=== PATIENT | female | born 1970 | race Caucasian/White ===

== ENCOUNTER 2017-01-04 04:25 | Emergency (ER) | payer OTHER ==
[~2017-01-04] VITALS: Ht 165.1 cm; Wt 86.2 kg
[2017-01-04 04:30] VITALS: BP 125/85
--- NOTE | 2017-01-04 04:33 | NUR ---
[facility] ALS TO ER BED 7
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
--- NOTE | 2017-01-04 04:40 | NUR ---
Patient being evaluated by physician at bedside.
[2017-01-04] MEDS ORDERED: IBUPROFEN 800 MG TAB PO ONE (05:25)
[2017-01-04] MEDS ORDERED: IBUPROFEN 800 MG TAB ONE (05:30)
[2017-01-04] MEDS ORDERED: oxyCODONE/APAP 5/325 MG 1 TAB TAB PO ONE (06:20)
[2017-01-04 07:15] VITALS: BP 115/69
--- NOTE | 2017-01-04 07:15 | NUR ---
Patient discharged with v/s stable. Written and verbal after care instructions given and explained. Patient verbalized understanding. Ambulatory [facility] with steady gait. All questions addressed prior to discharge. Advised to follow up with PMD.
== END 2017-01-04 07:15 | disposition home or self-care (01) ==
LOC: MED 04:25
DX: S39.012A Strain of muscle, fascia and tendon of lower back, initial encounter (principal); S90.122A Contusion of left lesser toe(s) without damage to nail, initial encounter; S90.02XA Contusion of left ankle, initial encounter; W10.9XXA Fall (on) (from) unspecified stairs and steps, initial encounter; Y93.89 Activity, other specified; Y92.89 Other specified places as the place of occurrence of the external cause; Y99.8 Other external cause status
CPT/HCPCS: 72110; 72170; 73610; 73660; 81025; 99284

== ENCOUNTER 2022-02-25 14:19 | Emergency (ER) | payer OTHER ==
[~2022-02-25] VITALS: Ht 162.6 cm; Wt 70.8 kg
[~2022-02-25 14:19] MED LIST: ACET-9882 PO; BUPR-160 PO; CEPH250C16 PO; DULO30EC PO; DULO60EC1 PO; ERGO-30 PO; HYDR25CA1 PO; LURA80TA1 PO; METF-346 PO; METR500T1 PO; ONDA4TAB PO; POTA10TA70 PO; QUET300T1 PO; SYN.05 PO
[2022-02-25 14:26] VITALS: BP 105/48
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
--- NOTE | 2022-02-25 14:40 | NUR ---
TEZ LARA AT BEDSIDE FOR EVAL
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
== END 2022-02-25 15:14 ==
LOC: MED 14:19
DX: E11.9 Type 2 diabetes mellitus without complications (principal); F41.9 Anxiety disorder, unspecified; F32.A Depression, unspecified; Z02.89 Encounter for other administrative examinations; Z79.4 Long term (current) use of insulin; Z79.899 Other long term (current) drug therapy; V49.88XA Car occupant (driver) (passenger) injured in other specified transport accidents, initial encounter; Y93.89 Activity, other specified; Y92.89 Other specified places as the place of occurrence of the external cause; Y99.8 Other external cause status
CPT/HCPCS: 99283

== ENCOUNTER 2022-08-09 17:21 | Emergency (ER) | payer OTHER ==
[~2022-08-09] VITALS: Ht 167.6 cm; Wt 83.9 kg
[2022-08-09 17:40] VITALS: BP 145/81
--- NOTE | 2022-08-09 17:42 | NUR ---
52 y/o female, c/o chest burning, sob, cough for 3 weeks. pt states she was seen here and dx with bronchitis. denies sick contacts at home. a&ox4, ambulates with steady gait. pmh: bronchitis, pneumonia, dm2 nka med: denies
[2022-08-09] MEDS ORDERED: ROBAC PO (19:22)
[2022-08-09] MEDS ORDERED: LORA1T1237 PO (19:22)
--- NOTE | 2022-08-09 19:35 | NUR ---
PATIENT CALL FOR DISCHARGE, NO RESPONSE. WENT HOME WITHOUT D/C INSTRUCTIONS.
== END 2022-08-09 19:35 | disposition home or self-care (01) ==
LOC: MED 17:21
DX: B34.9 Viral infection, unspecified (principal); Z20.822 Contact with and (suspected) exposure to COVID-19
CPT/HCPCS: 71045; 99284

== ENCOUNTER 2022-12-27 17:27 | Emergency (ER) | payer OTHER ==
[~2022-12-27] VITALS: Ht 162.6 cm; Wt 86.2 kg
[~2022-12-27 17:27] MED LIST changes: +LORA1T1237 PO; +ROBAC PO
[2022-12-27 17:33] VITALS: BP 103/71
--- NOTE | 2022-12-27 17:43 | NUR ---
pt ambulatory to [facility]
[2022-12-27] MEDS ORDERED: SUVO20TA PO (19:21)
[2022-12-27] MEDS ORDERED: QUET300T1 PO (19:21)
[2022-12-27 19:32] VITALS: BP 103/71
--- NOTE | 2022-12-27 19:32 | NUR ---
Patient discharged with v/s stable. Written and verbal after care instructions given and explained. Patient alert, oriented and verbalized understanding of instructions. Ambulatory with steady gait. All questions addressed prior to discharge. ID band removed. Patient advised to follow up with PMD. Rx of Seroquel and Belsomra given. Patient educated on indication of medication including possible reaction and side effects. Opportunity to ask questions provided and answered.
== END 2022-12-27 19:32 | disposition home or self-care (01) ==
LOC: MED 17:27
DX: Z76.0 Encounter for issue of repeat prescription (principal); G47.00 Insomnia, unspecified; Z79.899 Other long term (current) drug therapy
CPT/HCPCS: 99281

== ENCOUNTER 2024-03-06 13:19 | Inpatient (IN) | payer OTHER ==
[2024-03-05 19:30] VITALS: PULSE 84; RESP 18; O2SAT 96
[~2024-03-06] VITALS: Ht 162.6 cm; Wt 85.7 kg
[~2024-03-06 13:19] MED LIST changes: +SUVO20TA PO
[2024-03-06 13:36] VITALS: BP 155/83; PULSE 88; RESP 18; TEMP 98.3; O2SAT 100
[2024-03-06] MEDS: NACL 0.9% 1,000 ML IV ONE (13:47)
[2024-03-06] MEDS: ONDANSETRON 4 MG/2 ML VIAL IVP ONE (13:48)
[2024-03-06 14:03] LABS: BASOPHILS # (AUTO) 0.1 K/uL (0.00-0.22); BASOPHILS % (AUTO) 0.4 % (0.0-2.0); EOSINOPHILS % (AUTO) 0.1 % (0.0-4.0); HEMOGLOBIN 13.3 g/dL (12.0-16.0); LYMPHOCYTES # (AUTO) 2.2 K/uL (2.5-16.5); LYMPHOCYTES % (AUTO) 17.2 % (20.5-51.1); MEAN CORPUSCULAR HEMOGLOBIN 30 pg (27-31); MEAN CORPUSCULAR HGB CONC 33 g/dL (33-37); MEAN CORPUSCULAR VOLUME 89.1 fL (80-94); MONOCYTES # (AUTO) 0.8 K/uL (0.8-1.0); NEUTROPHILS # (AUTO) 9.9 K/uL (1.8-7.7); NEUTROPHILS % (AUTO) 76.3 % (42.2-75.2); PLATELET COUNT (AUTO) 475 K/uL (140-450); RED BLOOD CELL COUNT(AUTO) 4.49 MIL/uL (4.20-5.40); RED CELL DISTRIBUTION WIDTH 12.6 % (11.6-13.7); WHITE BLOOD COUNT (AUTO) 12.9 K/uL (4.8-10.8)
[2024-03-06] MEDS: MORPHINE SULFATE 4 MG/ML SYR IVP ONE (14:18)
[2024-03-06 14:19] LABS: ALBUMIN 4.1 g/dL (3.4-5.0); ANION GAP 24.1 (8-16); CALCIUM 9.7 mg/dL (8.5-10.1); CARBON DIOXIDE 18.6 mmol/L (21-32); CREATININE 1.5 mg/dL (0.6-1.3); POTASSIUM 4.7 mmol/L (3.5-5.1); TOTAL BILIRUBIN 0.6 mg/dL (0.0-1.0); TOTAL PROTEIN, SERUM 7.8 g/dL (6.4-8.2)
[2024-03-06 15:33] LABS: AMPHETAMINE, URINE NEGATIVE ng/ml (NEG <=1000); BARBITURATE, URINE NEGATIVE ng/ml (NEG <=200); BENZODIAZEPINE, URINE POSITIVE ng/mL (NEG <=200); CANNABINOID, URINE NEGATIVE ng/mL (NEG <=50); COCAINE, URINE NEGATIVE ng/mL (NEG <=300); PHENCYCLIDINE SCREEN,URINE NEGATIVE ng/mL (NEG <=25)
[2024-03-06 15:34] LABS: OPIATE, URINE POSITIVE ng/mL (NEG <=2000)
[2024-03-06] MEDS: INSULIN REGULAR, HUMAN 100 UNIT/ML VIAL SUBQ ONE (16:15)
[2024-03-06] MEDS ORDERED: ZOLPIDEM 5 MG TAB PO PRN (16:55)
[2024-03-06] MEDS ORDERED: guaiFENesin DM 200/20 MG-10 ML 10 ML UDC PO PRN (16:55)
[2024-03-06] MEDS ORDERED: ACETAMINOPHEN 325 MG TAB PO PRN (16:55)
[2024-03-06] MEDS ORDERED: DEXTROSE 50% 50 ML SYR IVP PRN (17:00)
[2024-03-06] MEDS ORDERED: POTASSIUM CHLORIDE 10 MEQ TABER PO PRN (17:00)
[2024-03-06 17:03] LABS: BLOOD GAS PH 7.602 (7.35-7.45)
[2024-03-06 17:04] LABS: BLOOD GAS PO2 126.1 mmHg (75-100)
[2024-03-06 17:05] LABS: BLOOD GAS BASE EXCESS -5.4 mmol/L (-2.0-2.0); BLOOD GAS HCO3 13.5 mmol/L (22-26); BLOOD GAS O2 SAT% 98.8 % (92.0-98.5)
[2024-03-06] MEDS ORDERED: NACL 0.9% 1,000 ML IV SCH (17:05)
[2024-03-06] MEDS ORDERED: hydrOXYzine PAMOATE 25 MG CAP PO PRN (17:05)
[2024-03-06] MEDS ORDERED: cefTRIAXone 1,000 MG VIAL ONE (17:43)
[2024-03-06] MEDS: NACL 0.9% 1,000 ML IV SCH (17:54)
[2024-03-06] MEDS ORDERED: PROP10TA28 PO (18:05)
[2024-03-06] MEDS ORDERED: CHOL100084 PO (18:05)
[2024-03-06] MEDS ORDERED: [UNRECOGNIZED DRUG - CODE] PO (18:05)
[2024-03-06] MEDS ORDERED: SIMV-33 PO (18:05)
[2024-03-06] MEDS ORDERED: TRAZ-466 PO (18:05)
[2024-03-06] MEDS ORDERED: ACET-512 PO (18:05)
[2024-03-06] MEDS ORDERED: TIZA-313 PO (18:05)
[2024-03-06] MEDS ORDERED: [UNRECOGNIZED DRUG - CODE] PO (18:05)
[2024-03-06] MEDS ORDERED: GABA300T36 (18:05)
[2024-03-06] MEDS ORDERED: QUET300T26 PO (18:05)
[2024-03-06] MEDS ORDERED: TRAZ150T36 PO (18:05)
[2024-03-06] MEDS ORDERED: [UNRECOGNIZED DRUG - CODE] PO (18:05)
[2024-03-06] MEDS ORDERED: hydrALAZINE 20 MG/ML VIAL IVP PRN (19:25)
[2024-03-06 19:30] VITALS: BP 142/84; PULSE 84; RESP 20; TEMP 98.3; O2SAT 96
[2024-03-06] MEDS: ONDANSETRON 4 MG/2 ML VIAL IM/IVP PRN (19:51)
[2024-03-06] MEDS: BLOOD GLUCOSE MONITORING 1 DEV DEV FS SCH (20:05)
[2024-03-06] MEDS: LORazepam 2 MG/ML VIAL IM/IVP PRN (20:37)
[2024-03-06] MEDS: INSULIN LISPRO SLIDING SCALE 100 UNITS/ML VIAL SUBQ PRN (21:23)
[2024-03-06] MEDS: INSULIN LANTUS 100 UNITS/ML 10 ML VIAL SUBQ SCH (21:24)
[2024-03-06 21:35] LABS: LACTIC ACID 4.1 mmol/L (0.4-2.0)
[2024-03-06] MEDS: NACL 0.9% 1,000 ML IV STA (22:49)
[2024-03-07] VITALS (10 sets, daily range): BP systolic 132–158; BP diastolic 82–88; PULSE 85–121; RESP 20; TEMP 97.6–98.5; O2SAT 95–98
[2024-03-07] MEDS: HYDROcodone/APAP 7.5/325 MG 1 TAB PO PRN (00:19)
[2024-03-07 03:07] LABS: APPEARANCE,URINE CLEAR (CLEAR); BILIRUBIN,URINE NEGATIVE (NEGATIVE); BLOOD, URINE NEGATIVE (NEGATIVE); COLOR,URINE YELLOW (YELLOW); LEUKOCYTE ESTERASE ,URINE NEGATIVE (NEGATIVE); NITRITE, URINE NEGATIVE (NEGATIVE); PROTEIN,URINE TRACE (NEGATIVE); UGLUCOSE 1+ (NEGATIVE); UROBILINOGEN,URINE 0.2 EU/dL (0.2 - 1)
[2024-03-07] MEDS: LEVOTHYROXINE 0.05 MG TAB PO SCH (06:39)
[2024-03-07 07:15] LABS: ALBUMIN 3.5 g/dL (3.4-5.0); ANION GAP 18.9 (8-16); CALCIUM 8.1 mg/dL (8.5-10.1); CARBON DIOXIDE 19.3 mmol/L (21-32); POTASSIUM 3.2 mmol/L (3.5-5.1); TOTAL BILIRUBIN 0.6 mg/dL (0.0-1.0); TOTAL PROTEIN, SERUM 6.7 g/dL (6.4-8.2)
[2024-03-07] MEDS: SIMVASTATIN 40 MG TAB PO SCH (08:10)
[2024-03-07] MEDS: DULoxetine 30 MG CAPDR PO SCH (08:10)
[2024-03-07] MEDS: PANTOPRAZOLE 40 MG TABEC PO SCH (08:10)
[2024-03-07 08:31] LABS: BASOPHILS % (AUTO) 0.1 % (0.0-2.0); EOSINOPHILS % (AUTO) 0.2 % (0.0-4.0); HEMATOCRIT 32.4 % (36-48); HEMOGLOBIN 10.9 g/dL (12.0-16.0); LYMPHOCYTES # (AUTO) 2.6 K/uL (2.5-16.5); LYMPHOCYTES % (AUTO) 17.9 % (20.5-51.1); MEAN CORPUSCULAR HEMOGLOBIN 30 pg (27-31); MEAN CORPUSCULAR HGB CONC 34 g/dL (33-37); MEAN CORPUSCULAR VOLUME 88.8 fL (80-94); MONOCYTES # (AUTO) 1.3 K/uL (0.8-1.0); MONOCYTES % (AUTO) 9.1 % (1.7-9.3); NEUTROPHILS # (AUTO) 10.4 K/uL (1.8-7.7); NEUTROPHILS % (AUTO) 72.7 % (42.2-75.2); PLATELET COUNT (AUTO) 352 K/uL (140-450); RED BLOOD CELL COUNT(AUTO) 3.65 MIL/uL (4.20-5.40); WHITE BLOOD COUNT (AUTO) 14.3 K/uL (4.8-10.8)
[2024-03-07 08:58] LABS: LACTIC ACID 1.7 mmol/L (0.4-2.0)
[2024-03-07] MEDS: POTASSIUM CHLORIDE 10 MEQ TABER PO PRN (09:16)
[2024-03-07] MEDS: LACTULOSE 20 GM/30 ML UDC PO SCH ×2 (10:35→17:00)
[2024-03-07] MEDS: DOCUSATE SODIUM 100 MG GELCAP PO PRN (11:02)
[2024-03-07] MEDS: PIPERACILLIN/TAZOBACTAM 3.375 GM in DEXTROSE 5% 50 ML IV SCH (13:19)
[2024-03-07] MEDS: fentaNYL citrate 0.05 MG/ML VIAL ONE (13:28)
[2024-03-07] MEDS: diphenhydrAMINE 50 MG/ML VIAL ONE (13:28)
[2024-03-07] MEDS: MIDAZOLAM 5 MG/5 ML VIAL ONE (13:28)
[2024-03-07] MEDS: MIDAZOLAM 5 MG/5 ML VIAL IV ONE (13:53)
[2024-03-07] MEDS: fentaNYL citrate 0.05 MG/ML VIAL IVP ONE (13:54)
[2024-03-07] MEDS: POLYETHYLENE GLYCOL 17 GM/PKT PO SCH (17:00)
[2024-03-07] MEDS ORDERED: QUEtiapine FUMARATE 100 MG TAB PO SCH (17:00)
[2024-03-07] MEDS: SENNA 8.6 MG TAB PO SCH (17:25)
[2024-03-07] MEDS: ERYTHROMYCIN 100 MG in NACL 0.9% 100 ML IV SCH (18:32)
[2024-03-07] MEDS: QUEtiapine FUMARATE 100 MG TAB PO SCH (21:35)
[2024-03-08] VITALS (9 sets, daily range): BP systolic 108–145; BP diastolic 63–86; PULSE 52–104; RESP 18–20; TEMP 96.6–98.5; O2SAT 52–99
[2024-03-08 06:31] LABS: BASOPHILS # (AUTO) 0.1 K/uL (0.00-0.22); EOSINOPHILS # (AUTO) 0.1 K/uL (0-0.4); LYMPHOCYTES # (AUTO) 2.5 K/uL (2.5-16.5); MONOCYTES # (AUTO) 0.7 K/uL (0.8-1.0)
[2024-03-08 06:50] LABS: BASOPHILS % (AUTO) 0.5 % (0.0-2.0); EOSINOPHILS % (AUTO) 1.4 % (0.0-4.0); HEMATOCRIT 32.2 % (36-48); HEMOGLOBIN 10.7 g/dL (12.0-16.0); LYMPHOCYTES % (AUTO) 26.9 % (20.5-51.1); MEAN CORPUSCULAR HEMOGLOBIN 30 pg (27-31); MEAN CORPUSCULAR HGB CONC 33 g/dL (33-37); MEAN CORPUSCULAR VOLUME 89.7 fL (80-94); MONOCYTES % (AUTO) 7.9 % (1.7-9.3); NEUTROPHILS # (AUTO) 5.9 K/uL (1.8-7.7); NEUTROPHILS % (AUTO) 63.3 % (42.2-75.2); PLATELET COUNT (AUTO) 324 K/uL (140-450); RED BLOOD CELL COUNT(AUTO) 3.59 MIL/uL (4.20-5.40); RED CELL DISTRIBUTION WIDTH 12.8 % (11.6-13.7); WHITE BLOOD COUNT (AUTO) 9.4 K/uL (4.8-10.8)
[2024-03-08 07:12] LABS: ALBUMIN 3.1 g/dL (3.4-5.0); ANION GAP 16.3 (8-16); CARBON DIOXIDE 21.7 mmol/L (21-32); CREATININE 0.8 mg/dL (0.6-1.3); TOTAL BILIRUBIN 0.4 mg/dL (0.0-1.0); TOTAL PROTEIN, SERUM 6.1 g/dL (6.4-8.2)
[2024-03-08] MEDS: ATORVASTATIN 20 MG TAB PO SCH (08:15)
[2024-03-08] MEDS: buPROPion 75 MG TAB PO SCH (08:15)
[2024-03-08] MEDS: amLODIPine 5 MG TAB PO SCH (08:17)
[2024-03-08] MEDS ORDERED: POLYETHYLENE GLYCOL 17 GM/PKT PO SCH (09:00)
[2024-03-08] MEDS ORDERED: buPROPion 150 MG TABER PO SCH (09:00)
[2024-03-08] MEDS ORDERED: DULoxetine 30 MG CAPDR PO SCH (09:00)
[2024-03-08] MEDS: POTASSIUM CHLORIDE 40 MEQ, LIDOCAINE 1% 25 MG in NACL 0.9% 250 ML IV SCH (14:10)
[2024-03-08] MEDS: POTASSIUM CHL 30 MEQ/ D5-1/2NS 1,000 ML IV SCH (16:51)
[2024-03-08] MEDS: SUPREP BOWEL PREP KIT 354 ML SOLN.RECON PO SCH (17:14)
[2024-03-08] MEDS: NEOSTIGMINE 1:1000 10 MG/10 ML VIAL IV SCH (17:56)
[2024-03-08] MEDS: LUBIPROSTONE 24 MCG CAPSULE PO SCH (17:58)
[2024-03-09] VITALS: BP 129/85; PULSE 116; PULSE 85; RESP 18; TEMP 97.6; O2SAT 98
[2024-03-09 04:00] VITALS: BP 139/81; PULSE 101; PULSE 107; RESP 16; TEMP 97.9; O2SAT 96
[2024-03-09 06:55] LABS: BASOPHILS # (AUTO) 0.1 K/uL (0.00-0.22); BASOPHILS % (AUTO) 0.8 % (0.0-2.0); EOSINOPHILS # (AUTO) 0.2 K/uL (0-0.4); EOSINOPHILS % (AUTO) 1.8 % (0.0-4.0); HEMATOCRIT 33.8 % (36-48); HEMOGLOBIN 11.4 g/dL (12.0-16.0); LYMPHOCYTES # (AUTO) 2.4 K/uL (2.5-16.5); LYMPHOCYTES % (AUTO) 25.3 % (20.5-51.1); MEAN CORPUSCULAR HEMOGLOBIN 30 pg (27-31); MEAN CORPUSCULAR HGB CONC 34 g/dL (33-37); MEAN CORPUSCULAR VOLUME 89.7 fL (80-94); MONOCYTES # (AUTO) 0.6 K/uL (0.8-1.0); MONOCYTES % (AUTO) 6.5 % (1.7-9.3); NEUTROPHILS # (AUTO) 6.3 K/uL (1.8-7.7); NEUTROPHILS % (AUTO) 65.6 % (42.2-75.2); PLATELET COUNT (AUTO) 353 K/uL (140-450); RED BLOOD CELL COUNT(AUTO) 3.77 MIL/uL (4.20-5.40); RED CELL DISTRIBUTION WIDTH 12.5 % (11.6-13.7); WHITE BLOOD COUNT (AUTO) 9.6 K/uL (4.8-10.8)
[2024-03-09 07:24] LABS: ALBUMIN 3.3 g/dL (3.4-5.0); ANION GAP 17.2 (8-16); CALCIUM 8.5 mg/dL (8.5-10.1); CARBON DIOXIDE 21.9 mmol/L (21-32); CREATININE 0.9 mg/dL (0.6-1.3); POTASSIUM 3.1 mmol/L (3.5-5.1); TOTAL BILIRUBIN 0.4 mg/dL (0.0-1.0); TOTAL PROTEIN, SERUM 6.7 g/dL (6.4-8.2)
[2024-03-09 08:00] VITALS: BP 144/78; PULSE 77; PULSE 97; RESP 18; TEMP 206.6; TEMP 97; O2SAT 97
[2024-03-09] MEDS: MIDAZOLAM 2 MG/2 ML VIAL IVP ONE (11:36)
[2024-03-09] MEDS: fentaNYL citrate 0.05 MG/ML VIAL IVP ONE (11:37)
[2024-03-09] MEDS: diphenhydrAMINE 50 MG/ML VIAL ONE (11:54)
[2024-03-09] MEDS: MIDAZOLAM 5 MG/5 ML VIAL ONE (11:54)
[2024-03-09] MEDS: fentaNYL citrate 0.05 MG/ML VIAL ONE (11:54)
[2024-03-09 12:00] VITALS: PULSE 86
[2024-03-09] MEDS: LACTULOSE 20 GM/30 ML UDC PO SCH (12:15)
[2024-03-09] MEDS ORDERED: LACT-85 PO (12:36)
[2024-03-09] MEDS ORDERED: METF-713 PO (12:37)
[2024-03-09] MEDS ORDERED: [UNRECOGNIZED DRUG - CODE] MC (12:38)
[2024-03-09] MEDS: POTASSIUM CHLORIDE 20% 40 MEQ/15 ML UDC GT SCH (12:51)
[2024-03-09 13:00] VITALS: BP 144/78; PULSE 97; RESP 21; TEMP 97
[2024-03-09] MEDS ORDERED: MIDAZOLAM 2 MG/2 ML VIAL IVP SCH (14:09)
[2024-03-09] MEDS ORDERED: fentaNYL citrate 0.05 MG/ML VIAL IVP SCH (14:09)
[2024-03-09] MEDS ORDERED: FERROUS SULFATE 325 MG TABEC PO SCH (17:00)
== END 2024-03-09 14:00 | disposition home or self-care (01) | DRG 853 ==
LOC: MED 13:19 → MTU 16:59
PROVIDERS: ADMIT Student in an Organized Health Care Education/Training Program; ATTEND Student in an Organized Health Care Education/Training Program
PROC: 0DBN7ZZ Excision of Sigmoid Colon, Via Natural or Artificial Opening (ICD-10-PCS; 2024-03-07)
PROC: 0DJ08ZZ Inspection of Upper Intestinal Tract, Via Natural or Artificial Opening Endoscopic (ICD-10-PCS; principal; 2024-03-07 12:40)
DX: A41.9 Sepsis, unspecified organism (principal); N17.0 Acute kidney failure with tubular necrosis; E87.20 Acidosis, unspecified; E11.65 Type 2 diabetes mellitus with hyperglycemia; D64.9 Anemia, unspecified; K52.89 Other specified noninfective gastroenteritis and colitis; K59.00 Constipation, unspecified; F31.9 Bipolar disorder, unspecified; E66.9 Obesity, unspecified; I10 Essential (primary) hypertension; G89.29 Other chronic pain; K29.70 Gastritis, unspecified, without bleeding; K63.5 Polyp of colon; Z68.32 Body mass index [BMI] 32.0-32.9, adult; Z79.891 Long term (current) use of opiate analgesic; Z98.1 Arthrodesis status; Z79.4 Long term (current) use of insulin; Z79.84 Long term (current) use of oral hypoglycemic drugs; R11.2 Nausea with vomiting, unspecified
CPT/HCPCS: 36415; 36600; 71045; 80053; 80305; 81003; 82803; 82948; 83605; 83690; 83880; 84484; 85025; 87040; 87081; 87086; 97116; 97163-GP; 99285; J0696; J1200; J1364; J1815; J2001; J2060; J2250; J2270; J2405; J2543; J2710; J3010; J3480; J7030; J7060; Q0177; Q9967